=== PATIENT | female | born 1950 | race Caucasian/White ===

== ENCOUNTER → 2017-01-27 14:33 | Outpatient (CLI) | payer OTHER | END | disposition home or self-care (01) | LOC: D.MAMMO 14:00 | DX: C50.412 Malignant neoplasm of upper-outer quadrant of left female breast (principal) ==

== ENCOUNTER 2018-08-06 09:00 | Outpatient (CLI) | payer SELFPAY | END 2018-08-06 10:00 | disposition home or self-care (01) | LOC: D.MAMMO 09:00 | PROVIDERS: ATTEND Family Medicine | DX: Z12.31 Encounter for screening mammogram for malignant neoplasm of breast (principal) ==

== ENCOUNTER 2019-08-31 21:15 | Inpatient (IN) | payer MEDICARE ==
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
[2019-09-01 02:50] VITALS: BP 155/98
[2019-09-01 06:22] LABS: BASOPHILS 0.1 % (0-2); EOSINOPHILS 0.3 % (0-7); HEMATOCRIT 37.2 % (36.0-48.0); HEMOGLOBIN 11.8 g/dL (12-16); IMMATURE GRANULOCYTES 0.5 % (0-5); LYMPHOCYTES 18.8 % (15-50); MCH 27.7 pg (26.0-34.0); MCHC 31.7 g/dL (31.0-37.0); MCV 87.3 fL (80.0-100.0); MEAN PLATELET VOLUME 9.3 fL (7.4-10.4); MONOCYTES 10.6 % (2-11); NEUTROPHILS 69.7 % (40-80); PLATELET COUNT 198 10x3/uL (130-400); RBC 4.26 10x6/uL (4.00-5.40); RDW 13.4 % (11.5-14.5); WBC 7.7 10x3/uL (4.8-10.8)
[2019-09-01 07:24] LABS: ALBUMIN 3.8 g/dL (3.4-5.0); ALKALINE PHOSPHATASE 85 U/L (30-120); ALT (SGPT) 31 U/L (10-68); BILIRUBIN - TOTAL 0.35 mg/dL (0.2-1.3); CALC OSMOLALITY 287 mosm/kg (275-300); CALCIUM 9.1 mg/dL (8.5-10.1); CARBON DIOXIDE 26.8 mmol/L (21.0-32.0); CHLORIDE - SERUM 107 mmol/L (98-107); CHOL - HDL RATIO 4.1 ratio (2.3-4.1); CHOLESTEROL, TOTAL 228 mg/dL (0-200); CREATININE - SERUM 1.2 mg/dL (0.6-1.3); GLUCOSE 116 mg/dL (74-106); HDL CHOLESTEROL 56 mg/dL (32-96); LDL CHOLESTEROL 152 mg/dL (0-100); LDL-HDL RATIO 2.7 ratio (1.5-3.5); POTASSIUM - SERUM 3.1 mmol/L (3.5-5.1); PROTEIN - SERUM 7.8 g/dL (6.4-8.2); SODIUM 145 mmol/L (136-145); THYROID STIMULATING HORMONE 0.24 uIU/mL (0.36-3.74); TRIGLYCERIDE 104 mg/dL (30-200); UREA NITROGEN 6 mg/dL (7-18); eGFR NON AFRICAN AMERICAN 47 mL/min (90-120)
[2019-09-01] MEDS ORDERED: TRIAMTERENE-HC1 EAC3 PO (10:16)
[2019-09-01] MEDS ORDERED: ULTRAM50 MG PO (10:16)
[2019-09-01] MEDS ORDERED: ZANAFLEX4 MG PO (10:17)
[2019-09-01] MEDS ORDERED: OXYCONTIN40 MG PO (10:20)
[2019-09-01] MEDS ORDERED: LEVOXYL200 MCG PO (10:20)
[2019-09-01] MEDS ORDERED: GABAPENTIN300 MG PO (10:21)
[2019-09-01] MEDS ORDERED: TENORMIN50 MG PO (10:21)
[2019-09-01] MEDS ORDERED: COZAAR100 MG PO (10:22)
[2019-09-01 10:25] VITALS: BP 184/116
--- NOTE | 2019-09-01 15:00 | NUR ---
RECEIVED IN HALLWAY OUTSIDE OF NURSES STATION. VERY AGITATED AND ANXIOUS. VERY AGURMENTATIVE AND UNCOOPERATIVE. BECAME AGGRESSIVE WITH REDIRECTION. PRN ATIVAN 0.5 MG IM AND HALDOL 2 MG IM GIVEN. WILL CONTINUE TO MONITOR.
[2019-09-01 15:13] VITALS: Wt 86.8 kg
[2019-09-01 20:49] VITALS: BP 154/93
--- NOTE | 2019-09-02 01:39 | NUR ---
B.) PT IS ALERT AND ORIENTED TO SELF ONLY. SHE HAS POOR INSIGHT INTO HER SITUATION. SHE IS EXIT SEEKING AT TIMES. SHE SELF ISOLATES. OBSERVED HER SOCIALIZING WITH PEERS. I.) PROVIDED PM MEDICATIONS PRESCRIBED. REDIRECT OFTEN. R.) COMPLIANT WITH ALL MEDICATIONS. DIFFICULT TO REDIRECT AT TIMES. P.) WILL CONTINUE TO MONITOR.
[2019-09-02 07:14] LABS: RAPID PLASMA REAGIN Non Reactive (Non Reactive)
--- NOTE | 2019-09-02 08:00 | NUR ---
PATIENT IS AWAKE AND ALERT TO PERSON, PLACE,SITUATION AND TIME. SELF AMBULATES. NO HALLUCINATIONS NOTED TODAY. ADMINISTER PRESCRIBED MEDICATIONS. REDIRECT AND REORIENT NEEDED. COMPLIANT WITH MEDICATIONS. CONTINUE PLAN OF CARE AND MONITOR FOR BEHAVIOR CHANGES.
[2019-09-02 10:04] VITALS: BP 163/90
[2019-09-02 14:42] LABS: BILIRUBIN NEGATIVE (NEGATIVE); GLUCOSE NEGATIVE (NEGATIVE); KETONE SMALL mg/dL (NEGATIVE); NITRITE NEGATIVE (NEGATIVE); UROBILINOGEN NORMAL (NORMAL)
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
--- NOTE | 2019-09-02 18:30 | NUR ---
INAPPROPRIATE BEHAVIOR AFTER TELEPHONE CALL WITH . HE STARTED CURSING AND YELLING AT ANOTHER PATIENT.
[2019-09-02 20:16] VITALS: BP 156/97
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
[2019-09-03 10:35] VITALS: BP 141/88
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
--- NOTE | 2019-09-03 14:36 | NUR ---
The patient is bizarre in mood and affect. She is calm, but she sits to herself. She is oriented to self. She told Dr. Montalvo that she was having diarrhea and wanted something for that. She has had two loose stools that I am aware of. Dr. Montalvo explained to her that often times a person will experience diarrhea when they are no longer taking a medication, a withdrawal reaction. The patient verbalized understanding, but also stated that she is not a drinker and does not have an addiction. She also told him she is not a hoarder, although, her son states that she has kept fuzz from her spouse pancho. She denies. Provide prescribed meds. The patient is compliant with meds. Continue POC.
--- NOTE | 2019-09-03 15:14 | NUR ---
Nutrition Follow-up: Diet: Regular PO intake: ~17% average x last 6 meals; refused to eat yesterday per MD notes Last BM: 09/01/19. WT: 195# (09/01/19) Meds reviewed. No new labs. Recommend continue current diet and encouarged PO intake at meal times. Will add Ensure TID with meals. RD following.
--- NOTE | 2019-09-03 16:15 | NUR ---
SPOKE WITH ADELITA MASTERS SON AT THIS TIME. PASSCODE GIVEN. NURSE GAVE AN UPDATE ON PT WAS DOING AT THIS TIME. HE WAS VERY THANKFUL AT THIS TIME. HE KEPT TELLING STAFF HOW HE REALLY NEEDED TO HEAR THAT NEWS AT THAT TIME. HE SAID HE WOULD CALL BACK AT PHONE TIME.
[2019-09-03 20:00] VITALS: BP 144/94
--- NOTE | 2019-09-03 20:02 | NUR ---
RECEIVED PATIENT IN DAYROOM, INTERACTING WITH OTHERS, COMPLIANT WITH MEDS. CAN MAKE ALL NEEDS KNOWN, SHE SEEMS A LITTLE "SPACEY" AT TIMES, SHE DOES TRY TO EXPLAIN HERSELF, NO ADVERSE REACTION TO MEDS. WILL FOLLOW POC
--- NOTE | 2019-09-03 23:59 | NUR ---
SON, ADELITA, CALLED TO CHECK. REPORT GIVEN AFTER CODE WAS VERIFIED. EXPLAINED TO HIM THAT SHE HAD A FAIRLY WELL EVENING AND THAT SHE WAS TAKING HER MEDS. HER WAS PLEASED TO HEAR.
--- NOTE | 2019-09-04 07:04 | NUR ---
DURING THE NIGHT, PATIENT CAME TO NURSE'S STATION COMPLAINING OF BACK PAIN. OFFERED IDEAS TO PATIENT TO HELP ALLEVIATE PAIN, SUCH RAISING THE LEGS OF THE BED OR HEAD OF THE BED, OFFERED A WARM BLANKET AND PATIENT WENT BACK TO BED.
--- NOTE | 2019-09-04 08:18 | NUR ---
The patient is awake and alert, she is pleasant and calm, she is talkative and enjoys interacting with staff and peers. She ambulates independently. She denies any S.I. or H.I. She has not made any mention of diarrhea this am. She is oriented x3. Provide prescribed meds. The patient is compliant with meds. Continue POC.
[2019-09-04 09:32] VITALS: BP 171/92
--- NOTE | 2019-09-04 12:40 | NUR ---
SPOKE WITH PT SON ADELITA AT THIS TIME. PASSCODE GIVEN. HE WANTED TO SPEAK WITH DR. HUGHES. HE EXPRESSED CONCERN THAT HE HAD NOT SPOKEN WITH THE DOCTOR SINCE HIS MOTHER BEEN HERE. HE STATED "HE WOULD REPORT HIS LICENSE TO THE STATE ON FRIDAY. HE WANTS TRANSPARENCY ON WHAT IS GOING WITH HIS MOTHER. THE SILENCE REFLECT ON THE TYPE OF DOCTOR HE IS." NURSE EDUCATED ON HER HISTORY, THE EVENTS THAT LEAD HER HERE, HOW THE PROCESS WENT WITH THE DOCTOR. HE DOES A PROCESS WHEN WORKING WITH NEW PTS, SHE HAS BEEN HERE FOR 4 DAYS. NURSE EDUCATED SON HOW SHE IS DOING AND THAT HE NOTE HE WANTED TO TALK TO THE DOCTOR. HE WAS THANKFUL ONCE THE PROCESS WAS EXPLAINED.
--- NOTE | 2019-09-04 12:58 | PN ---
PATIENT:FANNIEAUGUST MEDICAL RECORD: [id number] LOCATION:[facility] ADMISSION DATE: 08/31/19 PROGRESS NOTE DATE OF SERVICE: 09/03/2019 SUBJECTIVE: The patient's case was discussed with staff. She has no new complaint. OBJECTIVE: The patient is in good behavioral control. She has limited insight about her situation. She generally tolerates her medicines well. She is significantly better. ASSESSMENT: Vascular dementia. PLAN: The patient's cognitive impairment is mild. I am going to treat her with Namenda at a low dose. She is having some modest withdrawal symptoms from opiates, but nothing as severe as I would have expected given her profile on the prescription drug monitoring program. I have explained to her that taking opiates is not in her long-term best interest. I have explained why and answered questions about this and at this point, at least she is agreeable to abstaining from them. I am also going to call her pharmacy and have her flagged as the potential abuser of opiates and will also contact her primary care physician's office and let him know about the situation. TRANSINT:[id number] Voice Confirmation ID: [id number] DOCUMENT ID: [id number] AMARA HUGHES MD at 1258 CC: [id number] DICTATION DATE: 09/03/19 1504 SPANISH TUTOR: 09/04/[address] [facility] [place] [address] [place] [address]
--- NOTE | 2019-09-04 13:53 | NUR ---
PT IS DEMANDING TO AMA AT THIS TIME. NOTIFIED DOCTOR ELLEN. HE WILL NOT DISCHARGE PT. PT DEMANDS TO SPEAK WT DOCTOR. WILL NOTIFY DOCTOR ELLEN AGAIN.
[2019-09-04 20:00] VITALS: BP 171/92
--- NOTE | 2019-09-05 01:09 | NUR ---
RECEIVED PATIENT IN DAYROOM, SITTING ON THE COUCH, SHE WAS READY TO GO TO BED, SHE CAN MAKE ALL NEEDS KNOWN. COMPLIANT WITH MEDS. SHE DID NOT TRY TO MANIPULATE THIS EVENING REGARDING TRYING TRYING TO GET PAIN MEDS. SPOKE WITH HER SON TWICE, REGARDING HER UNEMPLOYMENT AND BLOOD PRESSURE. I INFORMED HIM NICELY THAT IF THERE IS ANYTHING URGENT THAT HE NEEDS TO KNOW THAT WE WOULD NOTIFY HIM IMMEDIATLEY.
[2019-09-05 09:34] VITALS: BP 155/84
--- NOTE | 2019-09-05 12:00 | NUR ---
RECEIVED IN HALLWAY OUTSIDE OF NURSES STATION. CALM AND COOPERATIVE WITH CARE AND ASSESSMENT. NO AGGRESSION. REDIRECT AND REORIENT NEEDED. EATING AT THIS TIME. CONTINUE PLAN OF CARE.
--- NOTE | 2019-09-05 12:26 | PN ---
PATIENT:FANNIEAUGUST MEDICAL RECORD: [id number] LOCATION:[facility] ADMISSION DATE: 08/31/19 PROGRESS NOTE DATE OF SERVICE: 09/04/2019 SUBJECTIVE: The patient's case was discussed with staff. She has no new complaint. OBJECTIVE: The patient is fully oriented. Her mood is euthymic. She has no thoughts of harming herself or others. She has no psychotic symptoms. She does not accept that she has an addiction problem. ASSESSMENT: 1. Rule out dementia. 2. Opiate dependence. 3. Rule out major depression. PLAN: The patient's situation is still marginal in my view. I think that I was not correct in diagnosing her with a dementia when she first came, but it had been more than 12 hours since her last use of an opiate and she was still showing evidence of cognitive impairment. The opiates that she takes are short-acting and she did clear over the next couple of days and so at best I can probably say she only has a mild dementia or mild cognitive impairment. I feel absolutely certain that she has an addiction problem and I spent at least 45 minutes talking to her son, José Miguel about her history which goes back many years. Apparently, she was being wildly over prescribed opiates by a doctor in [place] and when she would overtake those opiates, she [place] to [facility] and at least at that time, she was able to buy narcotics in a pharmacy there. She is not at all in agreement that she has any kind of an addiction problem. I think there is a great deal of anger and uncertainty there and I am not comfortable with her safety or leaving the hospital today. She is wanting to leave and at this point, I have told her that I do not recommend it and I want her to think about it and if she insists I am prepared to hold her against her will. TRANSINT:[id number] Voice Confirmation ID: [id number] DOCUMENT ID: [id number] AMARA HUGHES MD at 1226 CC: [id number] DICTATION DATE: 09/04/19 1416 COTTON BALL MACHINE TENDER: 09/04/19 1746 ADM IN [facility] [address] [place] [address]
[2019-09-05 19:53] VITALS: BP 159/99
--- NOTE | 2019-09-05 20:13 | NUR ---
RECEIVED IN DAYROOM. SITTING IN A CHAIR WITH PEERS AT HER SIDE. SOCIAL AT TIMES. CALM AND COOPERATIVE WITH CARE AND ASSEESSMENT. ENCOURAGE TO EXPRESS NEEDS. CONTINUES TO SIT CALMLY IN DAYROOM. CONTINUE PLAN OF CARE.
[2019-09-06 10:08] VITALS: BP 133/94
--- NOTE | 2019-09-06 13:00 | NUR ---
FOOD PRODUCTION MANAGER MARY AND THIS NURSE WITNESSED PT STATE " I WANT PILLS LOCKED IN PHARMACY DESTROYED." PT SIGHNED PHARMACY LOCK UP LIST. THIS NURSE AND FOOD PRODUCTION MANAGER SIGNED FORM. PT ALSO " STATED TO DR. HUGHES, I DONT WANT TO TAKE THEM PILLS HOME." PILLS DESTROYED PER PT REQUEST.
--- NOTE | 2019-09-06 13:17 | PN ---
PATIENT:FANNIEAUGUST MEDICAL RECORD: [id number] [facility]ATION[facility] ADMISSION DATE: 08/31/19 PROGRESS NOTE DATE OF SERVICE: 09/05/2019 SUBJECTIVE: The patient's case was discussed with staff. She has no new complaint. OBJECTIVE: The patient is in good behavioral control. She has no thoughts of harming herself or others. She is participating in treatment and not showing any evidence of opiate withdrawal. ASSESSMENT: No change in diagnoses. PLAN: The patient will be transitioned out of the hospital soon if this level of improvement continues. TRANSINT:[id number] Voice Confirmation ID: [id number] DOCUMENT ID: [id number] AMARA HUGHES MD at 1317 CC: [id number] DICTATION DATE: 09/05/19 1435 OUTDOOR ADVENTURE LEADER: 09/05/19 1714 ADM IN [place] [id number] [place] [address]
[2019-09-06] MEDS ORDERED: LIPITOR10 MG PO (14:21)
[2019-09-06] MEDS ORDERED: ARIMIDEX PO (14:21)
[2019-09-06] MEDS ORDERED: ACETAMINOPHEN500 M1 PO (14:21)
[2019-09-06] MEDS ORDERED: TENORMIN50 MG PO (14:21)
[2019-09-06] MEDS ORDERED: LIDODERM 5 %1 PATCH TRANSDERM (14:22)
[2019-09-06] MEDS ORDERED: LEVOTHYROXINE150 MCG PO (14:22)
[2019-09-06] MEDS ORDERED: PROTONIX40 MG PO (14:22)
[2019-09-06] MEDS ORDERED: LEXAPRO10 MG PO (14:22)
[2019-09-06] MEDS ORDERED: VOLTAREN100 GM TOPICAL (14:22)
[2019-09-06] MEDS ORDERED: VITAMIN D5000 UNI1 PO (14:23)
--- NOTE | 2019-09-06 14:59 | NUR ---
RECEIVED IN HALLWAY OUTSIDE OF NURSES STATION. CALM AND COOPERATIVE WITH CARE AND ASSESSMENT. NO BEHAVIORS NOTED. REDIRECT AND REORIENT NEEDED. SITTING IN GROUP AT THIS TIME. CONTINUE PLAN OF CARE.
--- NOTE | 2019-09-06 17:23 | NUR ---
PATIENT DISCHARGED TO HOME. PICKED UP BY FRIEND, KELLEE. PAPERWORK FAXED TO PCP AND [facility]. HARD COPY SENT WITH PATIENT. DISCHARGE PAPERWORK AND MEDICATIONS REVIEWED WITH PATIENT AND SHE VERBALIZES UNDERSTANDING. PERSONAL BELONGINGS SENT WITH PATIENT.
--- NOTE | 2019-09-07 14:50 | PN ---
PATIENT:FANNIEKLEVER MEDICAL RECORD: [id number] LOCATION:[facility] ADMISSION DATE: 08/31/19 PROGRESS NOTE DATE OF SERVICE: 09/06/2019 SUBJECTIVE: The patient's case was discussed with staff. She has no new complaint. OBJECTIVE: The patient has a euthymic mood and an appropriate affect. She is fully oriented and has thought processes that are logical and goal directed. She has no thoughts of harming herself or others and no psychotic symptoms. She has no evidence of opiate withdrawal. ASSESSMENT: 1. Delirium secondary to polypharmacy. 2. Opiate use disorder. PLAN: The patient has no evidence of acute or direct dangerousness to herself or others. She certainly does not meet criteria for an involuntary stay. She is asking to leave and I think she is clinically appropriate to be transitioned to a lower level. She is going to go to Narcotics Anonymous and Al-Anon. She is going to have other followup with her primary care physician. She does not have a dementia, even though I said that initially when she was admitted to the hospital, that was an incorrect diagnosis. Her final diagnosis upon discharge are resolved delirium because of polypharmacy and an opiate use disorder. Her primary care physician has been prescribing the opiates. He has been notified of her situation in my opinion and I presume he is no longer going to prescribe these to her. She says she is not going to seek them out. Her pharmacy has also had her flagged. I have discussed the situation extensively with her son. She is going to be discharged today. TRANSINT:[id number] Voice Confirmation ID: [id number] DOCUMENT ID: [id number] AMARA HUGHES MD at 1450 CC: [id number] DICTATION DATE: 09/06/19 1316 SOLIDWORKS MECHANICAL DESIGNER: 09/06/19 2208 DIS IN 09/06/19 [place] [address] [place] [address]
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
== END 2019-09-06 17:22 | disposition home or self-care (01) | DRG 884 ==
LOC: D.PSYCH 21:15
PROVIDERS: ADMIT Psychiatry & Neurology Psychiatry; ATTEND Psychiatry & Neurology Psychiatry
DX: F01.51 Vascular dementia, unspecified severity, with behavioral disturbance (principal); I10 Essential (primary) hypertension; G89.29 Other chronic pain; E03.9 Hypothyroidism, unspecified; E78.5 Hyperlipidemia, unspecified; F19.10 Other psychoactive substance abuse, uncomplicated; K21.9 Gastro-esophageal reflux disease without esophagitis; M17.0 Bilateral primary osteoarthritis of knee; E55.9 Vitamin D deficiency, unspecified; Z85.3 Personal history of malignant neoplasm of breast; Z86.73 Personal history of transient ischemic attack (TIA), and cerebral infarction without residual deficits; E78.00 Pure hypercholesterolemia, unspecified

== ENCOUNTER 2019-11-08 08:00 | Outpatient (CLI) | payer MEDICARE ==
[~2019-11-08 08:00] MED LIST: ACETAMINOPHEN500 M1 PO; ARIMIDEX PO; COZAAR100 MG PO; GABAPENTIN300 MG PO; LEVOTHYROXINE150 MCG PO; LEVOXYL200 MCG PO; LEXAPRO10 MG PO; LIDODERM 5 %1 PATCH TRANSDERM; LIPITOR10 MG PO; OXYCONTIN40 MG PO; PROTONIX40 MG PO; TENORMIN50 MG PO; TRIAMTERENE-HC1 EAC3 PO; ULTRAM50 MG PO; VITAMIN D5000 UNI1 PO; VOLTAREN100 GM TOPICAL; ZANAFLEX4 MG PO
== END 2019-11-08 10:18 | disposition home or self-care (01) ==
LOC: D.MAMMO 08:00
PROVIDERS: ATTEND Internal Medicine Hematology & Oncology
DX: C50.112 Malignant neoplasm of central portion of left female breast (principal); D50.9 Iron deficiency anemia, unspecified